=== PATIENT | male | born 1980 | race Caucasian/White ===

== ENCOUNTER → 2020-12-02 | Outpatient (REF) | payer BC ==
[2020-12-03 16:57] LABS: FERRITIN 606 NG/ML (26-388); IRON (FE) 146 UG/DL (65-175); PERCENT SATURATION 42.1 % (19.7-50.0); TOTAL IRON BINDING CAPACITY 347 UG/DL (250-450)
[2020-12-03 17:05] LABS: VITAMIN B12 LEVEL 421 PG/ML (247-911)
[2020-12-03 17:16] LABS: HEPATITIS B SURFACE ANTIGEN NEGATIVE (NEGATIVE)
[2020-12-03 17:43] LABS: HEPATITIS B CORE ANTIBODY IGM NEGATIVE (NEGATIVE)
[2020-12-05 15:11] LABS: ANTI DOUBLE STRAND-DNA AB 1 IU/mL (0-9); ANTINUCLEAR ANTIBODIES DIRECT Positive (Negative); RNP ANTIBODIES 1.4 AI (0.0-0.9); SJOGREN'S ANTI SS-A <0.2 AI (0.0-0.9); SJOGREN'S ANTI SS-B 0.2 AI (0.0-0.9); SMITH ANTIBODIES <0.2 AI (0.0-0.9)
== END ==
LOC: M LAB REF 16:05
PROVIDERS: ATTEND Nurse Practitioner Adult Health
DX: R74.01 Elevation of levels of liver transaminase levels (principal)

== ENCOUNTER → 2021-04-09 | Outpatient (REF) | payer BC | LOC: M LAB REF 16:25 | PROVIDERS: ATTEND Nurse Practitioner Adult Health | DX: R94.5 Abnormal results of liver function studies (principal) ==

== ENCOUNTER → 2021-04-26 | Outpatient (CLI) | payer BC | LOC: M RAD 08:58 | PROVIDERS: ATTEND Nurse Practitioner Adult Health | DX: R74.01 Elevation of levels of liver transaminase levels (principal) ==

== ENCOUNTER → 2021-05-11 | Outpatient (REF) | payer BC | LOC: M LAB REF 16:14 | PROVIDERS: ATTEND Internal Medicine | DX: R94.5 Abnormal results of liver function studies (principal) ==

== ENCOUNTER → 2021-10-19 | Outpatient (REF) | payer BC | LOC: M LAB REF 12:19 | PROVIDERS: ATTEND Nurse Practitioner Adult Health | DX: R74.01 Elevation of levels of liver transaminase levels (principal) ==

== ENCOUNTER → 2024-07-08 | Outpatient (REF) | payer BC ==
[2024-07-08 18:44] LABS: FERRITIN 307.8 NG/ML (10.5-307.3)
== END ==
LOC: M LAB REF 17:41
PROVIDERS: ATTEND Physician Assistant Medical
DX: K76.0 Fatty (change of) liver, not elsewhere classified (principal)